=== PATIENT | female | born 1945 | race Caucasian/White ===

== ENCOUNTER → 2019-02-06 | Outpatient (CLI) | payer MEDICARE, OTHER ==
[~2019-02-06] MED LIST: CALCIUM 600MG+D1 TAB PO; CARDI-OMEGA1000 MG PO; EXCEDRIN ES PO; HYDROCODONE/APAP; NEXIUM 40MG40 MG PO; NEXIUM PO; RELPAX20 MG; WELLBUTRIN PO; hormone
== END ==
LOC: MC.RAD 07:35
DX: Z12.31 Encounter for screening mammogram for malignant neoplasm of breast (principal)

== ENCOUNTER → 2020-02-12 | Outpatient (CLI) | payer MEDICARE, OTHER | LOC: MC.RAD 15:37 | DX: Z12.31 Encounter for screening mammogram for malignant neoplasm of breast (principal) ==

== ENCOUNTER 2021-05-05 08:02 | Day surgery (SDC) | payer MEDICARE, OTHER ==
[~2021-05-05] VITALS: Ht 170.2 cm; Wt 60.7 kg
[2021-05-05] VITALS (24 sets, daily range): BP systolic 70–143; BP diastolic 40–99; PULSE 57–120; TEMP 97.8–98.3
[2021-05-05] MEDS ORDERED: [UNRECOGNIZED DRUG - REMARK] (08:41)
--- NOTE | 2021-05-05 10:40 | NUR ---
PATIENT BROUGHT BACK TO [facility] VIA [facility]. AMBULATED TO CHAIR WITH ASSIST. PATIENT COMPLAINS OF RIGHT UPPER QUADRANT PAIN. DENIES NAUSEA. REPORT RECIEVED FROM LARA BALL. REQUESTS COFFEE. WARM BLANKET PROVIDED, CALL PERLA WITHIN REACH. WILL CONTINUE TO MONITOR.
--- NOTE | 2021-05-05 10:55 | NUR ---
TOLERATING COFFEE WITHOUT DIFFICULTY. STATES PAIN IS SLIGHTLY IMPROVED. AT BEDSIDE TO DRIVE PATIENT HOME. WILL CONTINUE TO MONITOR.
--- NOTE | 2021-05-05 11:10 | NUR ---
DR. CONTRERAS AT BEDSIDE TO SPEAK WITH PATIENT ABOUT RESULTS. SUSPECTS ABDOMINAL PAIN IS FROM GAS. ENCOURAGED PATIENT TO WALK TO BATHROOM. PATIENT AMBULATED TO BATHROOM WITH ONE ASSIST. WILL CONTINUE TO MONITOR.
--- NOTE | 2021-05-05 11:25 | NUR ---
PATIENT STATES SHE STILL HAS NO IMPROVEMENT TO ABDOMINAL PAIN. WARM COMPRESS APPLIED. AMBULATED TO BATHROOM. WITH NO RELIEF.
--- NOTE | 2021-05-05 12:20 | NUR ---
DR. CONTRERAS ORDERED CT OF ABDOMEN AND PELVIS. LABS PUT IN FOR STAT CREAT. LAB AT BEDSIDE TO DRAW AT 1226. SENT DOWN TO CT AT 1252. 1305- PATIENT IS BACK FROM CT. VITAL SIGNS STABLE. PATIENT CONTINUES TO COMPLAIN OF PAIN TO LEFT FLANK. 1435- DR. CONTRERAS AT BEDSIDE TO REVIEW CT RESULTS. VERBAL ORDERS RECIEVED FOR FENTANYL 50MG IV NOW. STARTED NEW IF TO RIGHT FOREARM, FLUIDS INFUSING. 1345- PAIN MEDICATION GIVEN PER ORDERS. PAIN 9/10 TO LEFT FLANK. PATIENT APPEARS TO HAVE MORE DIFFICULTY BREATHING. OXYGNEN PLACED AT 3L VIA NC. SPO2 REMAINS IN 90'S. PATIENT REPORTS FEELING NAUSEATED. 1355- D/T INCREASED SOB AND REPORTS OF LEFT SHOULDER PAIN CALLED RAPID RESPONSE TEAM. 1400- RESONSE TEAM AT BEDSIDE BLOOD PRESSURE LOW AT 85/40. FLUIDS RUNNING WIDE OPEN. ORDERS FOR LABS PLACED, ORDERS FOR EKG PLACED. 1405- SECOND BAG OF NORMAL SALINE HUNG. INFUSING WIDE OPEN. PATIENT IS STARTING TO CALM DOWN. PAIN IS NOW 5/10. 1422- PAIN IS 3-4 OUT OF 10. STATES SHE CAN BREATHE BETTER. DR. CONTRERAS AT BEDSIDE TO DISCUSS PLAN OF TRANSFER WITH PATIENT AND . VITAL SIGNS STABLE. REPORT RECIEVED FROM CORNELIA CARTRIDGE FILLER.
[2021-05-05 12:45] LABS: CREATININE, serum 0.74 mg/dL (0.57-1.11)
--- NOTE | 2021-05-05 14:23 | NUR ---
CALLED FOR CAT CALL AT 1400 TO COME ASSESS PATIENT. PATIENT SHALLOW BREATHING BUT ON 3L NC. HAVING ABDOMINAL PAIN. SPO2 IS 96% WILL CONTINUE TO MONITOR RESPIRATORY STATUS.
[2021-05-05 14:27] LABS: BASO # 0.1 (0.0-0.2); BASO % 0.5 % (0.0-2.0); GRAN # 10.8 (1.4-6.5); GRAN % 84.3 % (42.2-75.2); HEMOGLOBIN 10.5 g/dl (12.5-16.0); LYMPH # 1.1 (1.2-3.4); LYMPH % 8.5 % (20.0-51.0); MEAN CELL VOLUME 102 fl (80.0-100.0); MEAN CORPUSCULAR HEMOGLOBIN 33 pg (27.0-31.0); MEAN CORPUSCULAR HGB CONC 33 g/dl (33.0-37.0); MONO # 0.8 (0.1-0.6); MONO % 6.1 % (1.7-9.3); PLATELET COUNT 245 K/mm3 (130-400); RED BLOOD COUNT 3.15 M/mm3 (4.10-5.30); REDCELL DISTRIBUTION WIDTH-CV 13.5 % (11.5-14.5)
--- NOTE | 2021-05-05 14:30 | NUR ---
1400- CALLED BY QUINN ZAPIEN FOR CAT CALL ON THIS PATIENT IN ENDOSCOPY. UPON ARRIVAL, BP 85/40 AND A LITER OF NS IS BEING BOLUSED TO THE PATIENT. SHE IS ON 3L O2 AND 98%, RR 16, PAIN IS 9/10 LEFT UPPER BACK, LEFT FLANK. PATIENT STATES THAT IT IS VERY HARD TO BREATHE. RNANGELA, REPORTS THAT SHE JUST HAD FENTANYL ABOUT 15 MINUTES AGO FOR THE PAIN. EGD /COLON DONE THIS MORNING AND PROCEDURE HAD ENDED AT 1050 ASSESSMENT COMPLETED. NO ABNORMAL FINDINGS OTHER THAN THE PAIN ON LEFT SIDE. RECENT CT RESULTS SHOW SPLENIC HEMORRHAGE AND AWAITING SURGICAL CONSULT WITH POSSIBLE TRANSFER TO ANOTHER FACILITY. 1405 BP 110/55 3 LITER O2 99%, RR 16, PAIN 5/10 TO LEFT SHOULDER. ABDOMIN IS UNCOMFORTABLE. EKG ORDERED ALONG WITH STAT LABS. 2ND LITER OF NS HUNG VIA GRAVITY 1410 122/88, 3L O2 97%, EKG DONE 1415 LABS DRAWN, PAIN IS NOW 3-4/10. FEELS LIKE SHE CAN BREATHE BETTER. 1422 121/81 98% ON 2L O2. PATIENT SEEMS MORE COMFORTABLE NOW. AT BEDSIDE AND SUPPORTIVE. QUINN ZAPIEN AND HS, WORKING ON TRANSFER TO ANOTHER FACILITY. REPORT OFF TO QUINN MILLER.
[2021-05-05 14:39] LABS: INR 1.1 (0.8-3.0); PARTIAL THROMBOPLASTIN TIME 25.5 SECONDS (26.0-37.0); PROTHROMBIN TIME 11.9 SECONDS (9.7-12.8)
[2021-05-05 14:41] LABS: CREATININE, serum 0.71 mg/dL (0.57-1.11); POTASSIUM 3.9 mmol/L (3.5-4.5)
[2021-05-05 14:48] LABS: TROPONIN-I 0.01 ng/mL (0.00-0.033)
--- NOTE | 2021-05-05 15:35 | NUR ---
PATIENT STATES THAT SHE NEEDS TO USE RESTROOM. WHILE TRYING TO SIT UP PATIENT HAD 10 SECOND SIEZURE. VITAL SIGNS WITH HYPOTENSION. FLUIDS OPENED WIDE. DR. CONTRERAS MADE AWARE REDRAW H+H PLACE HERNANDEZ. ABDOMEN SOFT, BUT TENDER TO TOUCH. LAB AT BEDSIDE TO DRAW. TRAFFIC SIGNAL TECHNICIAN AT BEDSIDE. WILL CONTINUE TO MONITOR.
[2021-05-05 15:59] LABS: HEMOGLOBIN 9.5 g/dl (12.5-16.0)
--- NOTE | 2021-05-05 16:10 | NUR ---
HERNANDEZ INSTERTED WITHOUT DIFFICULTY. DRAINING CLEAR YELLOW URINE. STAT LOCK PLACED. PATIENT TRANSFERED TO CART. STOOD UP WITHOUT DIFFICULTY. VITAL SIGNS STABLE AT THIS TIME.
--- NOTE | 2021-05-05 16:29 | NUR ---
REPORT CALLED TO [facility]. ALL QUESTIONS ANSWERED. PATIENT AWAITING EMS TRANSPORT AT THIS TIME.
--- NOTE | 2021-05-05 16:40 | NUR ---
REPORT GIVEN TO ABY BADILLO RN TO RESUME CARE FOR PATIENT.
--- NOTE | 2021-05-05 16:57 | NUR ---
1655 EMS HERE TO TAKE PATIENT TO [facility] VIA AMBULANCE.
== END 2021-05-05 16:55 | disposition short-term general hospital (02) ==
LOC: SDCO 08:02
PROVIDERS: Internal Medicine Gastroenterology
DX: Z12.11 Encounter for screening for malignant neoplasm of colon (principal); D12.0 Benign neoplasm of cecum; D12.2 Benign neoplasm of ascending colon; D12.3 Benign neoplasm of transverse colon; K29.30 Chronic superficial gastritis without bleeding; K64.0 First degree hemorrhoids; K21.00 Gastro-esophageal reflux disease with esophagitis, without bleeding; S36.039A Unspecified laceration of spleen, initial encounter; J44.9 Chronic obstructive pulmonary disease, unspecified; Z90.49 Acquired absence of other specified parts of digestive tract; Z20.822 Contact with and (suspected) exposure to COVID-19; Z90.710 Acquired absence of both cervix and uterus
CPT/HCPCS: J2405; J3010; J7030; Q9967

== ENCOUNTER → 2021-06-15 | Outpatient (CLI) | payer MEDICARE, OTHER ==
[~2021-06-15] MED LIST changes: +[UNRECOGNIZED DRUG - REMARK]
== END ==
LOC: MC.RAD 10:53
DX: Z12.31 Encounter for screening mammogram for malignant neoplasm of breast (principal)

== ENCOUNTER 2022-11-13 07:51 | Emergency (ER) | payer MEDICARE, OTHER ==
[~2022-11-13] VITALS: Ht 170.2 cm; Wt 59.1 kg
[2022-11-13 07:54] VITALS: TEMP 97.4
[2022-11-13 08:08] LABS: BASO # 0.1 K/mm3 (0.0-0.2); BASO % 1.1 % (0.0-2.0); EOS # 0.2 K/mm3 (0.0-0.7); EOS % 2.9 % (0.0-4.0); GRAN # 3.3 K/mm3 (1.4-6.5); GRAN % 60.1 % (42.2-75.2); HEMOGLOBIN 13.5 g/dl (12.5-16.0); LYMPH # 1.3 K/mm3 (1.2-3.4); LYMPH % 24.2 % (20.0-51.0); MEAN CELL VOLUME 95 fl (80.0-100.0); MEAN CORPUSCULAR HEMOGLOBIN 33 pg (27-31); MEAN CORPUSCULAR HGB CONC 35 g/dl (33.0-37.0); MEAN PLATELET VOLUME 9.8 fl (7.4-10.4); MONO # 0.6 K/mm3 (0.1-0.6); MONO % 11.5 % (1.7-9.3); PLATELET COUNT 264 K/mm3 (130-400); REDCELL DISTRIBUTION WIDTH-CV 13.7 % (11.5-14.5)
[2022-11-13 08:15] LABS: INR 0.9 (0.8-3.0); PROTHROMBIN TIME 10.1 SECONDS (9.7-12.8)
[2022-11-13 08:18] LABS: PARTIAL THROMBOPLASTIN TIME 31.1 SECONDS (26.0-37.0)
[2022-11-13 08:26] LABS: ALANINE AMINOTRANSFERASE 66 U/L (0-55); ALBUMIN 4.2 gm/dL (3.4-4.8); ALKALINE PHOSPHATASE 77 U/L (40-150); ANION GAP 10 mmol/L (7-16); AST,SGOT 59 U/L (5-34); BILIRUBIN,TOTAL 0.4 mg/dL (0.2-1.2); BLOOD UREA NITROGEN 9 mg/dL (10-20); CALCIUM 9.8 mg/dL (8.4-10.2); CARBON DIOXIDE 24 mmol/L (23-31); CHLORIDE 103 mmol/L (98-107); CREATININE, serum 0.75 mg/dL (0.57-1.11); GLUCOSE 103 mg/dL (70-99); SODIUM 137 mmol/L (136-145); TOTAL PROTEIN 6.7 gm/dL (6.2-8.1)
[2022-11-13 08:38] LABS: TROPONIN-I < 0.010 ng/mL (0.00-0.033)
[2022-11-13 10:47] VITALS: BP 145/87; PULSE 81
== END 2022-11-13 10:45 | disposition home or self-care (01) ==
LOC: COL.ER 07:51
PROVIDERS: Family Medicine
DX: R07.9 Chest pain, unspecified (principal); Z87.891 Personal history of nicotine dependence

== ENCOUNTER 2024-02-13 08:25 | Emergency (ER) | payer MEDICARE, OTHER ==
[~2024-02-13] VITALS: Ht 170.2 cm; Wt 59.5 kg
[2024-02-13 08:33] VITALS: TEMP 98.5
[2024-02-13 09:32] LABS: BASO # 0.1 K/mm3 (0.0-0.2); BASO % 1.3 % (0.0-2.0); EOS # 0.1 K/mm3 (0.0-0.7); EOS % 1.7 % (0.0-4.0); GRAN # 3.2 K/mm3 (1.4-6.5); GRAN % 62.1 % (42.2-75.2); HEMATOCRIT 38.8 % (37.0-47.0); HEMOGLOBIN 13.4 g/dl (12.5-16.0); LYMPH # 1.4 K/mm3 (1.2-3.4); LYMPH % 26.8 % (20.0-51.0); MEAN CELL VOLUME 94 fl (80.0-100.0); MEAN CORPUSCULAR HEMOGLOBIN 33 pg (27-31); MEAN CORPUSCULAR HGB CONC 35 g/dl (33.0-37.0); MEAN PLATELET VOLUME 10.1 fl (7.4-10.4); MONO # 0.4 K/mm3 (0.1-0.6); MONO % 7.9 % (1.7-9.3); PLATELET COUNT 278 K/mm3 (130-400); RED BLOOD COUNT 4.11 M/mm3 (4.10-5.30); REDCELL DISTRIBUTION WIDTH-CV 14.2 % (11.5-14.5)
[2024-02-13 09:50] LABS: ALANINE AMINOTRANSFERASE 27 U/L (0-55); ALBUMIN 4.3 g/dL (3.4-4.8); ALKALINE PHOSPHATASE 82 U/L (40-150); ANION GAP 14 mmol/L (7-16); AST,SGOT 37 U/L (5-34); BILIRUBIN,TOTAL 0.6 mg/dL (0.2-1.2); BLOOD UREA NITROGEN 13 mg/dL (10-20); CALCIUM 9.2 mg/dL (8.4-10.2); CHLORIDE 103 mEq/L (98-107); CREATININE, serum 0.67 mg/dL (0.57-1.11); GLUCOSE 101 mg/dL (70-99); POTASSIUM 3.8 mEq/L (3.5-4.5); SODIUM 139 mEq/L (136-145); TOTAL PROTEIN 7.2 g/dl (6.2-8.1)
[2024-02-13 10:01] LABS: TROPONIN-I < 0.010 ng/mL (0.00-0.033)
[2024-02-13] MEDS ORDERED: NORVASC 5MG5 MG/TAB PO (10:43)
[2024-02-13] MEDS ORDERED: amLODIPine 5 MG TAB PO ONE (10:45)
[2024-02-13 11:33] VITALS: BP 180/107; PULSE 80
== END 2024-02-13 09:00 | disposition home or self-care (01) ==
LOC: COL.ER 08:25
PROVIDERS: Personal Emergency Response Attendant
DX: I10 Essential (primary) hypertension (principal); I25.2 Old myocardial infarction